=== PATIENT | male | born 1965 | race Caucasian/White ===

== ENCOUNTER 2018-03-08 10:10 | Emergency (ER) | payer MEDICAID, SELFPAY ==
[2018-03-08 10:16] VITALS: BP 138/98; PULSE 99; RESP 16; TEMP 36.7; O2SAT 96
--- NOTE | 2018-03-08 10:21 | ED.GENADUL ---
Disposition Clinical Impression: Constipation Disposition: HOME Condition: Fair Instructions: Constipation (ED) Additional Instructions: Please increase water intake. Please follow-up with primary care next week if symptoms are not improving. Begin with magnesium citrate as prescribed. You may take half the bottle initially, this is unsuccessful augment with the remaining half. If you develop fever/chills, abdominal pain or other new/worsening symptoms please seek care urgently once again. If magnesium citrate is unsuccessful, you may try a glyceryl suppository and continue with the MiraLAX as advised by your primary care Prescriptions: Magnesium Citrate [Citrate Of Magnesia] 300 ml PO ONCE PRN #1 btl PRN Reason: Referrals: Lashonda Silva MD, [place] [Primary Care Provider] - Medical Decision Making - Medical Decision Making Patient presents today with chief complaint of constipation ?5 days. Patient has tried minimal options at home. He was advised by his primary care to try a few days of MiraLAX. Patient did try one dose yesterday. We did discuss that this may take time to resolve. He is not endorsing any abdominal pain. No nausea vomiting. He is passing flatus. Abdominal exam is soft and nontender. No impaction on rectal exam. Rectal exam was nontender for the patient. Heme-negative stool. Patient I discussed various options. He did initially come in hoping for an enema. However, we did discuss the risks associated with enema and advised that he may try some more noninvasive techniques first. Patient prefers to try these techniques at home and when he may use his own restaurant. Patient was advised to try magnesium citrate. We also discussed other [id number] options. We discussed that he may discontinue the MiraLAX the next few days as was advised by his primary care. I also advised his primary had recommended he stay in contact with them if he develops persistent or worsening symptoms. I encouraged hydration. He was given return precautions. All his questions and concerns were addressed and he is in agreement this plan. History of Present Illness - General Chief complaint: Abd Prob Stated complaint: BOWEL PROBLEMS Time Seen by Provider: 03/08/18 10:17 Source: patient, RN notes reviewed Mode of arrival: ambulatory Limitations: no limitations - History of Present Illness Initial comments: Patient is a 52-year-old male presenting with chief complaint constipation. Patient was seen by his primary care yesterday for this. He reported at that point that he had not had a bowel movement in the past 4 days. He was passing flatus. Drink Gatorade and ice tea to help with symptomatic relief. Primary CARE advised trying polyethylene glycol. They advised trying this in the next few days to see if this would improve his symptoms at all. Exam is performed yesterday no acute abnormalities are noted, abdomen was soft and nontender. He reports that he took 1 dose of MiraLAX last night and is concerned he still has not had a bowel movement as of yet. Has not been sitting on the toilet frequently. He denies any pain. Says that he can have bloating. Denies any rectal pain. Does not have any abdominal surgeries. States that he was cold last night but no documented fevers. Denies any chest pain or shortness of breath. - Related Data Aspirin 1 tab PO DAILY tab-cap 10/22/12 Loratadine [Claritin] 1 tab PO DAILY PRN #90 tab-cap 11/11/12 Losartan [Cozaar] 50 mg PO DAILY #90 tab-cap 01/24/18 Polyethylene Glycol 1000 [Polyethylene Glycol] 17 gm PO BID PRN #500 gm 03/07/18 Magnesium Citrate [Citrate Of Magnesia] 300 ml PO ONCE PRN #1 btl 03/08/18 Allergies Allergy/AdvReac Type Severity Reaction Status Date / Time ibuprofen Allergy Unverified 03/08/18 10:22 hydrochlorothiazide AdvReac Mild LEFT SIDED Unverified 03/07/18 08:13 ABDOMINAL PAIN Review of Systems Constitutional: see HPI Respiratory: no symptoms reported Cardiovascular: denies: chest pain, palpitations Gastrointestinal: as per HPI, constipation. denies: abdominal pain, nausea, vomiting, diarrhea Genitourinary: denies: urgency, dysuria, frequency Musculoskeletal: back pain (chronic, reports it is worse on the left when sleeping. None currently) Skin: denies: rash, lesions Neurological: as per HPI. denies: headache (none currently) Past Medical History - Past Medical History Medical history: hyperlipidemia, hypertension Prostate hypertrophy Surgical history: no surgical history General Exam - General Limitations: no limitations General appearance: alert, in no apparent distress - Eye Eye exam: Present: normal apperance - Respiratory Respiratory exam: Present: normal lung sounds bilaterally. Absent: respiratory distress - Cardiovascular Cardiovascular Exam: Present: regular rate, normal rhythm, normal heart sounds - GI/Abdominal GI/Abdominal exam: Present: soft (Obese), normal bowel sounds. Absent: distended, tenderness, guarding, rebound, rigid, organomegaly, hernia - Rectal Rectal exam: Present: normal inspection, normal rectal tone, heme (-) stool, hemorrhoids (Small external hemorrhoid is noted. This is not thrombosed), prostate enlargement (Nontender). Absent: tenderness, prostate tenderness - Extremities Exam Extremities exam: Present: normal inspection - Back Exam Back exam: Present: normal inspection. Absent: CVA tenderness (R), CVA tenderness (L) - Neurological Exam Neurological exam: Present: alert, normal gait - Psychiatric Psychiatric exam: Present: normal affect, normal mood - Skin Skin exam: Present: warm, dry, normal color Course Vital Signs - 24 hr 03/08/18 10:16 Temperature 36.7 C Pulse 99 H Respiratory 16 Rate Blood Pressure 138/98 Pulse Oximetry 96
== END 2018-03-08 11:14 | disposition home or self-care (01) ==
LOC: ER 03-09 10:14
PROVIDERS: Emergency Provider Student in an Organized Health Care Education/Training Program; PCP Family Medicine
DX: K59.09 Other constipation (principal); I10 Essential (primary) hypertension
CPT/HCPCS: 99283

== ENCOUNTER 2019-12-03 02:39 | Outpatient (CLI) | payer MEDICAID, SELFPAY ==
[2019-12-03 10:42] LABS: Abs Immature Grans 0.01 k/cumm (0.0-0.09); Absolute Basophil Count 0.02 k/cumm (0.0-0.2); Absolute Eosinophil Count 0.12 k/cumm (0.0-0.7); Absolute Lymphocyte Count 2.06 k/cumm (1.2-3.4); Absolute Monocyte Count 0.85 k/cumm (0.11-0.7); Absolute Neutrophil Count 4.91 k/cumm (1.2-6.7); Basophils % 0.3; Eosinophils % 1.5; HCT 31.6 % (40.0-50.0); HGB 9.4 g/dL (13.5-17.5); Immature Grans % 0.1 %; Lymphocytes % 25.8; Mean Corp. HGB Concentration 29.7 g/dL (32.0-36.0); Mean Corpuscular Hemoglobin 21.9 pg (27.0-33.0); Mean Corpuscular Volume 73.7 fL (80-95); Mean Platelet Volume 9.8 fL (8.0-11.0); Monocytes % 10.7; Neutrophils % 61.6; Platelet Count 357 x1000/uL (130-400); RBC 4.29 m/cumm (4.50-6.00); RBC Distribution Width 19.3 % (11.8-14.1); White Blood Cell Count 7.97 k/cumm (4.4-10.8)
[2019-12-03 10:48] LABS: Hemoglobin A1C 6.4 % (3.8-5.6)
[2019-12-03 11:02] LABS: Anisocytosis 2+; Diff Comment RBC Morph Reviewed
[2019-12-03 11:03] LABS: Hypochromasia 3+; Microcytosis 3+; Poikilocytes 1+; Polychromasia Present
[2019-12-03 11:16] LABS: Iron 20 ug/dL (65-175); Total Iron Binding Capacity 437 ug/dL (250-450)
[2019-12-03 11:41] LABS: ALT 23 U/L (16-63); AST 20 U/L (15-37); Albumin 3.8 g/dL (3.4-5.0); Alkaline Phosphatase 101 U/L (46-116); Anion Gap 5.7 mmol/L (3-11); BUN 17 mg/dL (7-18); Bilirubin, Total 0.4 mg/dL (0.2-1.0); CO2 29.3 mmol/L (21.0-32.0); CREATININE 1.43 mg/dL (0.70-1.30); Calcium 8.9 mg/dL (8.5-10.1); Calculated LDL 99 mg/dL (<100); Chloride 104 mmol/L (98-107); Cholesterol 153 mg/dL (<200); Estimated GFR 51.73 (mL/min/1.73m2); Ferritin 5 ng/mL (26-388); Folate 17.9 ng/mL (8.6-20.0); Glucose 85 mg/dL (74-106); HDL Cholesterol 38 mg/dL (40-60); Magnesium 2.3 mg/dL (1.8-2.4); Potassium 4.3 mmol/L (3.5-5.1); Sodium 139 mmol/L (136-145); Total Protein 8.2 g/dL (6.4-8.2); Triglyceride 82 mg/dL (<150); Vitamin B12 616 pg/mL (193-986)
[2019-12-03 11:48] LABS: C-Reactive Protein 0.14 mg/dL (0.0-0.3)
[2019-12-04 14:41] LABS: Vitamin D 25 Total 27.7 ng/ml (30-100)
[2019-12-05 09:51] LABS: Homocysteine 12.2 umol/L (5.0-13.9)
[2019-12-05 10:54] LABS: Lipoprotein (a) <6 mg/dL (<=30)
== END 2019-12-03 02:59 ==
PROVIDERS: PCP Family Medicine; Visit Provider Naturopath
DX: R53.83 Other fatigue (principal); I10 Essential (primary) hypertension; Z82.49 Family history of ischemic heart disease and other diseases of the circulatory system
CPT/HCPCS: 36415; 80053; 80061; 82306; 83090; 83695; 82607; 82728; 82746; 83036; 83540; 83550; 83735; 85025; 86140

== ENCOUNTER 2019-12-08 20:34 | Outpatient (REF) | payer MEDICAID, SELFPAY ==
[2019-12-08 20:15] LABS: Abs Immature Grans 0.01 k/cumm (0.0-0.09); Absolute Basophil Count 0.02 k/cumm (0.0-0.2); Absolute Eosinophil Count 0.11 k/cumm (0.0-0.7); Absolute Lymphocyte Count 1.97 k/cumm (1.2-3.4); Absolute Monocyte Count 0.66 k/cumm (0.11-0.7); Absolute Neutrophil Count 3.91 k/cumm (1.2-6.7); Basophils % 0.3; Eosinophils % 1.6; HCT 31.2 % (40.0-50.0); HGB 9.2 g/dL (13.5-17.5); Immature Grans % 0.1 %; Lymphocytes % 29.5; Mean Corp. HGB Concentration 29.5 g/dL (32.0-36.0); Mean Corpuscular Hemoglobin 21.6 pg (27.0-33.0); Mean Corpuscular Volume 73.2 fL (80-95); Monocytes % 9.9; Neutrophils % 58.6; Platelet Count 382 x1000/uL (130-400); RBC 4.26 m/cumm (4.50-6.00); RBC Distribution Width 19.5 % (11.8-14.1); White Blood Cell Count 6.68 k/cumm (4.4-10.8)
[2019-12-08 21:15] LABS: Diff Comment RBC Morph Reviewed
[2019-12-08 21:16] LABS: Anisocytosis 2+; Hypochromasia 2+; Macrocytosis 1+; Microcytosis 2+; Polychromasia Present
[2019-12-08 21:46] LABS: ALT 19 U/L (16-63); AST 25 U/L (15-37); Albumin 3.8 g/dL (3.4-5.0); Alkaline Phosphatase 102 U/L (46-116); Anion Gap 6.7 mmol/L (3-11); BUN 23 mg/dL (7-18); Bilirubin, Total 0.3 mg/dL (0.2-1.0); CO2 27.3 mmol/L (21.0-32.0); CREATININE 1.31 mg/dL (0.70-1.30); Calcium 8.2 mg/dL (8.5-10.1); Chloride 103 mmol/L (98-107); Estimated GFR 57.24 (mL/min/1.73m2); Glucose 94 mg/dL (74-106); Potassium 4.4 mmol/L (3.5-5.1); Sodium 137 mmol/L (136-145); Total Protein 8.1 g/dL (6.4-8.2)
== END 2019-12-08 20:54 ==
LOC: LBN 20:34
PROVIDERS: PCP Family Medicine; Visit Provider Family Medicine
DX: I10 Essential (primary) hypertension (principal); D64.9 Anemia, unspecified; K92.0 Hematemesis
CPT/HCPCS: 80053; 85025

== ENCOUNTER 2020-02-26 00:36 | Outpatient (CLI) | payer MEDICAID, SELFPAY ==
--- NOTE | 2020-02-26 09:23 | DI.US_ITS ---
EXAM: US AAA SCREENING CLINICAL HISTORY: ABD AORTIC BRUIT,R09.89 COMPARISON: No exams were available for comparison FINDINGS: Abdominal Aorta maximal diameter: Proximal: 2.6 cm Iliac's: Right: 1.3 cm Left: 1 cm The doppler velocities are within normal limits. A cyst is noted at the lower pole of the left kidney measuring 6.5 cm in maximal dimension. IMPRESSION: No evidence of abdominal aortic aneurysm. DATA REPOSITORY:
== END 2020-02-26 00:56 ==
PROVIDERS: PCP Family Medicine; Visit Provider Naturopath
DX: R09.89 Other specified symptoms and signs involving the circulatory and respiratory systems (principal)
CPT/HCPCS: 76706

== ENCOUNTER 2021-12-07 19:27 | Outpatient (CLI) | payer MEDICAID, SELFPAY ==
[2021-12-07 12:03] LABS: Abs Immature Grans 0.02 10^3/uL (0.0-0.06); Absolute Basophil Count 0.04 10^3/uL (0.0-0.2); Absolute Eosinophil Count 0.03 10^3/uL (0.0-0.7); Absolute Lymphocyte Count 1.46 10^3/uL (1.2-3.4); Absolute Monocyte Count 0.64 10^3/uL (0.1-0.8); Absolute Neutrophil Count 6.48 10^3/uL (1.2-6.7); Basophils % 0.5; Eosinophils % 0.3; HCT 45.3 % (40.0-50.0); HGB 14.3 g/dL (13.5-17.5); Immature Grans % 0.2; Lymphocytes % 16.8; MCH 29.2 pg (27.0-33.0); MCHC 31.6 % (32.0-36.0); MCV 92 fL (80-95); MPV 9.4 fL (8.0-11.0); Monocytes % 7.4; Neutrophils % 74.8; Platelet Count 205 10^3/uL (130-400); RDW 13.4 % (11.8-14.1); RDW-SD 46.2 fL; WBC 8.67 10^3/uL (4.4-10.8)
[2021-12-07 12:35] LABS: Iron 144 ug/dL (65-175); Total Iron Binding Capacity 367 ug/dL (250-450); Transferrin Sat 39 % (20-55)
[2021-12-07 12:47] LABS: ALT 28 U/L (16-63); AST 29 U/L (15-37); Albumin 4.3 g/dL (3.4-5.0); Alkaline Phosphatase 108 U/L (46-116); Anion Gap 6.8 mmol/L (3-11); BUN 16 mg/dL (7-18); Bilirubin, Total 0.6 mg/dL (0.2-1.0); CO2 28.2 mmol/L (21.0-32.0); CREATININE 1.2 mg/dL (0.70-1.30); Calculated LDL 105 mg/dL (<100); Chloride 105 mmol/L (98-107); Cholesterol 170 mg/dL (<200); Creatine Kinase 286 U/L (39-308); Ferritin 25 ng/mL (26-388); Folate 18.2 ng/mL (8.6-20.0); Glucose 102 mg/dL (74-106); HDL Cholesterol 52 mg/dL (40-60); NT-proBNP 163 pg/mL (<300); Potassium 3.7 mmol/L (3.5-5.1); Sodium 140 mmol/L (136-145); Total Protein 8.9 g/dL (6.4-8.2); Triglyceride 66 mg/dL (<150); Troponin I < 50 ng/L (<or=60); Vitamin B12 473 pg/mL (193-986)
[2021-12-07 17:30] LABS: Hemoglobin A1C 5.8 % (<5.7)
[2021-12-07 21:56] LABS: CRP, High Sensitivity 1.19 mg/L (See Note)
== END 2021-12-07 19:28 | disposition home or self-care (01) ==
PROVIDERS: Visit Provider Naturopath
DX: I10 Essential (primary) hypertension (principal); E11.29 Type 2 diabetes mellitus with other diabetic kidney complication; R53.83 Other fatigue
CPT/HCPCS: 36415; 80053; 80061; 82550; 86141; 82607; 82728; 82746; 83036; 83540; 83550; 83880; 84484; 85025

== ENCOUNTER 2021-12-20 10:14 | Emergency (ER) | payer MEDICAID, SELFPAY ==
[2021-12-20] VITALS (19 sets, daily range): BP systolic 147–182; BP diastolic 97–116; PULSE 65–82; RESP 11–20; TEMP 37; O2SAT 88–99
--- NOTE | 2021-12-20 10:30 | RT.EKG_ITS ---
APPROVED REPORT Exam: Resting ECG Reason for Exam: palpitations Patient Location: E HR:77 bpm ECG Measurements Heart Rate 77 AXIS NM 142 P 21 QRSd 107 QRS -24 QT 401 T 74 QTc 455 Conclusion Sinus rhythm...normal P axis, V-rate 60- 99 Probable LVH with secondary repol abnrm...multiple LVH criteria. Sinus. No STEMI. I have reviewed and interpreted ECG and agree with software generated interpretation.
--- NOTE | 2021-12-20 10:45 | DI.RAD_ITS ---
Exam(s) XR PORTABLE CHEST AP EXAM: XR PORTABLE CHEST AP CLINICAL HISTORY: chest pain. TECHNIQUE: 2D digital imaging was performed. COMPARISON: No exams were available for comparison FINDINGS: Single AP portable view. Heart size is upper normal. The mediastinum is not widened. Lungs are clear. No infiltrates nor obvious pleural effusions. IMPRESSION: No acute pulmonary findings on this single AP portable view of the chest. DATA REPOSITORY: RADIATION DOSE DELIVERED: All CT scans at this facility use at least one of these dose optimization techniques: automated exposure control; mA and/or kV adjustment per patient size (includes targeted e xams where dose is matched to clinical indication); or iterative reconstruction.
[2021-12-20 11:08] LABS: Abs Immature Grans 0.01 10^3/uL (0.0-0.06); Absolute Basophil Count 0.02 10^3/uL (0.0-0.2); Absolute Eosinophil Count 0.04 10^3/uL (0.0-0.7); Absolute Lymphocyte Count 1.36 10^3/uL (1.2-3.4); Absolute Monocyte Count 0.56 10^3/uL (0.1-0.8); Absolute Neutrophil Count 5.86 10^3/uL (1.2-6.7); Basophils % 0.3; Eosinophils % 0.5; HCT 41.2 % (40.0-50.0); HGB 13.1 g/dL (13.5-17.5); Immature Grans % 0.1; Lymphocytes % 17.3; MCH 29.3 pg (27.0-33.0); MCHC 31.8 % (32.0-36.0); MCV 92 fL (80-95); MPV 9.4 fL (8.0-11.0); Monocytes % 7.1; Neutrophils % 74.7; Platelet Count 217 10^3/uL (130-400); RBC 4.47 10^6/uL (4.36-5.78); RDW 13.6 % (11.8-14.1); RDW-SD 46.4 fL; WBC 7.85 10^3/uL (4.4-10.8)
--- NOTE | 2021-12-20 11:22 | W.ED.GENAD ---
Discharge Plan Disposition Patient Disposition: HOME Condition: Stable Discharge Details Clinical Impression: Heart palpitations, Hypertension Primary Care Provider: Dorcas Pierce ED Provider: Regine Schaeffer Home Meds and New Rx's Prescriptions: New losartan 25 mg tablet 25 mg PO DAILY Qty: 14 0RF Continued omeprazole 20 mg capsule,delayed release(DR/EC) 20 mg PO DAILY Qty: 90 4RF cholecalciferol (vitamin D3) [Vitamin D3] 125 mcg (5,000 unit) tablet 125 mcg PO DAILY Qty: 90 4RF loratadine [Claritin] 10 MG tablet 1 tab PO DAILY PRNQty: 90 losartan 50 mg tablet 25 mg PO DAILY Qty: 45 11RF Discharge Instructions Instructions: Heart Palpitations (ED), Hypertension (ED) Additional Instructions: Start taking the losartan again Talk to your doctor about whether or not this herbal remedy is appropriate for you, I did attempt to call her today but she did not respond I am unsure regarding your medication I also set you up for Holter monitor Please return earlier should you have new or worsening complaints Recommend outpatient follow-up with your primary care physician within the next 24 to 48 hours Referrals: Dorcas Pierce [Primary Care Provider] - Discharge Data Discharge Date/Time-TO BE ENTERED AT DEPARTURE: 12/20/21 12:52 Medical Decision Making Patient appears well He is alert and oriented and presents with his sister His exam is benign including troponin, thyroid, and diagnostic blood work He remained hypertensive throughout the day and therefore he was initiated on his losartan which he has been previously prescribed He will keep close track of his blood pressure at home and call his provider to schedule close outpatient reassessment He was also initiated with a Holter monitor I did attempt to call patient's PCP during patient's stay for further information, however no phone call was received for several hours and patient was subsequently discharged home with a Holter monitor in place I am also unsure of what the supplement patient is receiving from his provider is that he was instructed to discontinue this supplement as we are unable to account for adverse effects with a combination of medication and supplementation Medical Records Medical records reviewed: Yes I reviewed the patient's medical records. Lab Data Lab results reviewed: Yes I reviewed the patient's lab results. ECG Data Prior ECG tracings: available for review HPI General Date/Time Provider Initiated Documentation: 12/20/21 10:18. HPI Narrative: This 56-year-old gentleman with history of hypertension presents with report of report of burning sensation to left lower extremity with palpitations/ fluttering last evening while laying down and resting. he reports 10 minutes of symptoms Denies chest pain or shortness of breath. Denies any associated diaphoresis or nausea. Denies known history of early coronary artery disease. Does not smoke, drink, use any additional illicit drugs. Denies prior history of similar symptoms in the past. He did recently start seeing a mathematical technician and states he was started on a new medication. He reports this is a natural remedy, but is unsure of the name. Denies any calf pain or swelling, recent flights, surgeries, long drives. Denies prior history of similar symptoms in the past. States but he saw his PCP and was sent to the emergency department because of his symptoms. Related Data Home Medications Medication Instructions Recorded Confirmed loratadine 10 mg tablet (Claritin) 1 tab PO DAILY PRN #90 tab-caps 11/11/12 12/20/21 cholecalciferol (vitamin D3) 125 125 mcg PO DAILY #90 tabs 12/08/19 12/20/21 mcg (5,000 unit) tablet (Vitamin D3) omeprazole 20 mg capsule,delayed 20 mg PO DAILY #90 caps 12/08/19 12/20/21 release losartan 50 mg tablet 25 mg PO DAILY #45 tab-caps 04/11/20 12/20/21 losartan 25 mg tablet 25 mg PO DAILY #14 tabs 12/20/21 Previous Rx's Medication Instructions Recorded cholecalciferol (vitamin D3) 125 125 mcg PO DAILY #90 tabs 12/08/19 mcg (5,000 unit) tablet (Vitamin D3) omeprazole 20 mg capsule,delayed 20 mg PO DAILY #90 caps 12/08/19 release losartan 50 mg tablet 25 mg PO DAILY #45 tab-caps 04/11/20 losartan 25 mg tablet 25 mg PO DAILY #14 tabs 12/20/21 Allergies Allergy/AdvReac Type Severity Reaction Status Date / Time ibuprofen Allergy Verified 12/20/21 10:25 hydrochlorothiazide AdvReac Mild LEFT SIDED Verified 12/20/21 10:25 ABDOMINAL PAIN General Stated Complaint: GenMedical ADALBERTO: 3 Review of Systems All systems reviewed & are unremarkable except as noted in HPI and below PFSH All Active Problems (Updated 12/20/21 @ 11:50 by BLANCA Lofton) Heart palpitations (Acute) Hypertension (Chronic) Palpitations (Acute) Impacted cerumen of left ear (Acute) Diabetes mellitus (Chronic) Anemia (Chronic) Bloody emesis (Acute) Sinus pain (Acute) BPH w urinary obs/LUTS (Chronic 02/14/10) with urinary retention Essential hypertension (Chronic 05/29/13) Hyperlipidemia (Chronic) Increased body mass index (Chronic) Family History (Updated 04/06/20 @ 08:32 by Maura Hernandez) Mother Diabetes Father Arthritis Sister Migraine Grandfather Myocardial infarction Social History Smoking/Tobacco Use Status: Never Smoking risk assessment performed?: Yes Alcohol Intake: never Substance use type: does not use Do you feel safe at home: Yes Do you feel safe in your relationship?: Yes Exam Const General: cooperative, comfortable and no acute distress HENMT Head: normal to inspection Eyes Pupils: PERRL Chest Chest: normal inspection of the chest Resp Effort & Inspection: normal respiratory effort Auscultation: clear to auscultation bilaterally Cardio Rate: regular rate Rhythm: regular rhythm Heart Sounds: no murmurs GI Inspection: normal to inspection Other: No abdominal bruit or pulsatile mass, nontender abdominal exam Skin General skin exam: no rashes or lesions noted Neuro General: patient alert and patient oriented x3 Extrem General: normal to inspection Other: No peripheral edema Distal pulses intact n/v intact Course Vital Signs Vital signs: Vital Signs Temperature 37.0 C 12/20/21 10:20 Pulse 82 12/20/21 10:20 Respiratory Rate 18 12/20/21 10:20 Blood Pressure 182/116 H 12/20/21 10:20 Pulse Oximetry 99 12/20/21 10:20 Temperature 37.0 C 12/20/21 10:20 Temperature Source Temporal Artery Scan 12/20/21 10:20 Pulse 82 12/20/21 10:20 Respiratory Rate 18 12/20/21 10:20 Respiratory Effort Non-Labored 12/20/21 10:24 Blood Pressure 182/116 H 12/20/21 10:20 Blood Pressure Position Sitting 12/20/21 10:20 Pulse Oximetry 99 12/20/21 10:20 Oxygen Delivery Method Room Air 12/20/21 10:20 Oxygen Flow Rate 0 12/20/21 10:20 Pain Level 0 12/20/21 10:20 Lab/Test Results Lab/Test Results: Laboratory Tests Range/Units 12/20/21 10:57 WBC (4.4-10.8) 10^3/uL 7.85 RBC (4.36-5.78) 10^6/uL 4.47 Hgb (13.5-17.5) g/dL 13.1 L Hct (40.0-50.0) % 41.2 MCV (80-95) fL 92 MCH (27.0-33.0) pg 29.3 MCHC (32.0-36.0) % 31.8 L RDW (11.8-14.1) % 13.6 Plt Count (130-400) 10^3/uL 217 MPV (8.0-11.0) fL 9.4 Immature Gran % 0.1 Neutrophils % 74.7 Lymphocytes % 17.3 Monocytes % 7.1 Eosinophils % 0.5 Basophils % 0.3 Nucleated RBC % (0.0-0.3) % 0.0 Absolute Neutrophils (1.2-6.7) 10^3/uL 5.86 Absolute Lymphocytes (1.2-3.4) 10^3/uL 1.36 Absolute Monocytes (0.1-0.8) 10^3/uL 0.56 Absolute Eosinophils (0.0-0.7) 10^3/uL 0.04 Absolute Basophils (0.0-0.2) 10^3/uL 0.02
[2021-12-20 11:26] LABS: ALT 27 U/L (16-63); AST 30 U/L (15-37); Albumin 3.8 g/dL (3.4-5.0); Alkaline Phosphatase 94 U/L (46-116); BUN 16 mg/dL (7-18); Bilirubin, Total 0.5 mg/dL (0.2-1.0); CREATININE 1.2 mg/dL (0.70-1.30); Calcium 8.5 mg/dL (8.5-10.1); Chloride 105 mmol/L (98-107); Glucose 106 mg/dL (74-106); Magnesium 2.1 mg/dL (1.8-2.4); Sodium 140 mmol/L (136-145); TSH (W/Ref FT4) 2.17 uIU/mL (0.36-3.74); Troponin I < 50 ng/L (<or=60)
--- NOTE | 2021-12-21 08:39 | NUR.NOTE ---
[facility]; the provider note, labs, xray report, EKG. Maura Sneed
== END 2021-12-20 12:52 | disposition home or self-care (01) ==
PROVIDERS: Emergency Provider Physician Assistant; PCP Naturopath
DX: R00.2 Palpitations (principal); I10 Essential (primary) hypertension; R07.9 Chest pain, unspecified
CPT/HCPCS: 80053; 93005; 99284; 71045; 83735; 84443; 84484; 85025; 93010

== ENCOUNTER 2021-12-20 11:59 | Outpatient (RCR) | payer MEDICAID, SELFPAY ==
--- NOTE | 2021-12-20 12:00 | HOLTER_ITS ---
APPROVED REPORT Conclusion This is a 48-hour Holter monitor Predominant rhythm was sinus average heart rate 71. Minimum was 47, maximum 109 There were rare ventricular ectopic beats, no couplets, no ventricular tachycardia There were occasional atrial premature beats There was a brief self-limited atrial run, 5 beats in duration There was no atrial fibrillation, no high-grade AV block, no pauses greater than 3 seconds No patient symptoms were reported
== END 2022-01-05 23:59 | disposition home or self-care (01) ==
LOC: RT 11:59
PROVIDERS: PCP Naturopath; Visit Provider Naturopath
DX: R00.2 Palpitations (principal); I49.1 Atrial premature depolarization
CPT/HCPCS: 93225; 93226

== ENCOUNTER → 2022-01-04 01:05 | Outpatient (CLI) | payer MEDICAID, SELFPAY | PROVIDERS: PCP Naturopath; Visit Provider Naturopath | DX: R01.1 Cardiac murmur, unspecified (principal) | CPT/HCPCS: 93306 ==

== ENCOUNTER 2022-01-04 14:00 | Emergency (ER) | payer MEDICAID, SELFPAY ==
[2022-01-04] VITALS (33 sets, daily range): BP systolic 141–173; BP diastolic 96–110; PULSE 69–101; RESP 12–20; TEMP 36.4; O2SAT 94–97
--- NOTE | 2022-01-04 14:15 | DI.CT_ITS ---
Exam(s) CT THORAX ABD/PEL CTA EXAM: CT THORAX ABD/PEL CTA TECHNIQUE: CT angiography of the chest, abdomen and pelvis was performed with bolus infusion of 100 cc of Omnipaque 350. Axial CT angiography was performed with multi-slice acquisition and multi-planar and/or 3D reconstruc tions. COMPARISON: No exams were available for comparison FINDINGS: The lungs are clear. No pleural effusion. No evidence of pulmonary embolic disease. No thoracic aort ic dissection. The ascending thoracic aorta measures up to about 5.4 cm in diameter. Aortic arch is 3.8 cm in diameter period descending aorta 2.5 cm in diameter period. Major branches of the thoraci c aorta appear normal. No pleural effusion. No mediastinal or hilar adenopathy. Tracheobronchial queenie e appears intact. Liver is unremarkable in appearance. There is a nonobstructing calculus of the left kidney measuring up to about 2 cm in diameter and are left renal cysts, the largest measuring roughly 5 cm in diamete r. Right kidney is unremarkable appearance, no urinary tract obstruction. Unremarkable appearance o f the urinary bladder. Gallbladder and bile ducts are CT normal. Pancreas is unremarkable. Spleen is unremarkable. No abdominal aortic aneurysm or dissection. Major branches of the abdominal aorta appear normal. No a bdominal or pelvic adenopathy. Normal appendix. No significant abdominal wall hernia. No focal bowel pathology. IMPRESSION: No evidence of thoracic aortic dissection. There is an ascending thoracic aortic aneurysm measuring up to about 5.4 cm in diameter. RADIATION DOSE DELIVERED: 1,318.63mGy.cm Total DLP 1,318.63mGy.cm Total DLP !Error CTDIvol DATA REPOSITORY: All CT scans at this facility are submitted to the National Radiology Data Registry (NRDR) Dose Index Registry (DIR) with the [employer] (A[employer]). RADIATION OPTIMIZATION: All CT scans at this facility use at least one of these dose optimization te chniques: automated exposure control; mA and/or kV adjustment per patient size (includes targeted exa ms where dose is matched to clinical indication); or iterative reconstruction.
[2022-01-04] MEDS: Metoprolol 5 MG/5 ML VIAL 2.5 MG IVP ×2 (14:42→15:24)
[2022-01-04 14:48] LABS: Abs Immature Grans 0.02 10^3/uL (0.0-0.06); Absolute Basophil Count 0.03 10^3/uL (0.0-0.2); Absolute Eosinophil Count 0.02 10^3/uL (0.0-0.7); Absolute Lymphocyte Count 1.45 10^3/uL (1.2-3.4); Absolute Neutrophil Count 5.46 10^3/uL (1.2-6.7); Basophils % 0.4; Eosinophils % 0.3; HCT 42.7 % (40.0-50.0); HGB 13.9 g/dL (13.5-17.5); Immature Grans % 0.3; Lymphocytes % 19.6; MCH 29.6 pg (27.0-33.0); MCHC 32.6 % (32.0-36.0); MCV 91 fL (80-95); Monocytes % 5.4; Platelet Count 232 10^3/uL (130-400); RBC 4.69 10^6/uL (4.36-5.78); RDW 13.5 % (11.8-14.1); RDW-SD 45.5 fL; WBC 7.38 10^3/uL (4.4-10.8)
[2022-01-04] MEDS: Omnipaque 350 MG/ML 100 ML BTL IJ (14:49)
[2022-01-04] MEDS: Normal Saline Flush 10 ML SYR IVP (14:51)
[2022-01-04 15:07] LABS: ALT 29 U/L (16-63); AST 28 U/L (15-37); Albumin 3.8 g/dL (3.4-5.0); Alkaline Phosphatase 101 U/L (46-116); Anion Gap 7.9 mmol/L (3-11); BUN 14 mg/dL (7-18); Bilirubin, Total 0.5 mg/dL (0.2-1.0); CO2 28.1 mmol/L (21.0-32.0); CREATININE 1.4 mg/dL (0.70-1.30); Calcium 8.5 mg/dL (8.5-10.1); Chloride 103 mmol/L (98-107); Estimated GFR 52.62 (mL/min/1.73m2); Glucose 159 mg/dL (74-106); Potassium 3.6 mmol/L (3.5-5.1); Sodium 139 mmol/L (136-145); Total Protein 8.2 g/dL (6.4-8.2); Troponin I < 50 ng/L (<or=60)
--- NOTE | 2022-01-04 15:09 | W.ED.GENAD ---
Discharge Plan Disposition Patient Disposition: HOME Condition: Improving Discharge Details Clinical Impression: Aneurysm of ascending aorta, Hypertension Primary Care Provider: Dorcas Pierce ED Provider: Dangelo Parsons Home Meds and New Rx's Prescriptions: New metoprolol succinate 25 mg tablet extended release 24 hr 25 mg PO DAILY Qty: 30 1RF No Action loratadine [Claritin] 10 MG tablet 1 tab PO DAILY PRNQty: 90 losartan 25 mg tablet 25 mg PO DAILY Qty: 14 0RF Discharge Instructions Instructions: Thoracic Aortic Aneurysm (ED) Additional Instructions: Please follow-up with cardiothoracic surgical team at [facility] in the coming weeks, also follow-up with cardiology. Please take medications as prescribed. Please return the emergency department he develop any worsening symptoms such as chest pain trouble breathing lightheadedness nausea vomiting or other abnormal symptoms. Discharge Data Discharge Date/Time-TO BE ENTERED AT DEPARTURE: 01/04/22 17:04 Medical Decision Making <Torey Cunningham NP - Last Filed: 01/06/22 11:47> All patient presenting to the emergency department for chief complaint of abnormal echo. Lube Man spoke with skate boarder and referred patient to the emergency department for concern of aortic aneurysm versus dissection. Patient states he is asymptomatic at this time. Patient does report that on December 19 he had an episode where it felt like the blood was flowing abnormal through his valves which lasted 10 to 15 minutes and resolved. The next day he presented to the emergency department and had a unremarkable work-up and was pain-free at that point but continued outpatient work-up with echo today that was abnormal. Physical exam shows a possible grade 1 systolic murmur at the right sternal border, this is very subtle and was only appreciated with a amplified stethoscope. Exam is otherwise unremarkable, radial pulses equal bilateral, no lower extremity edema, patient overall well in appearance. Given concerning findings will perform CTA imaging on a emergent basis and check labs. Review of vital signs show hypertension otherwise stable vital signs. Will give patient Lopressor pressure of 2.5 and continue to monitor. Review of labs show a negative troponin, CBC that is unremarkable, slightly increased creatinine of 1.4 with a GFR 52, glucose 159. All of the labs are within normal range. Review of CT imaging and speaking with radiologist shows a 5.4 ascending aortic aneurysm with radiologist stating no signs of dissection at this time. Patient reassessed and remains pain-free. Patient does still remain hypertensive so we will give additional 2.5 dose of Lopressor and contact cardiothoracic surgery at [facility] This documentation was generated using [employer] dictation system, please disregard any oddities of phrase or misspellings. 16: [address] Jeong of cardiothoracic surgery at [facility] who was able to review echo and CTA imaging, endorses that this is likely chronic in nature without evidence of acute dissection or rupture. Encouraged close follow-up with [facility] cardiothoracic surgery team in the coming weeks as well as cardiology also recommending to start patient on a beta-elliot and AMANDA inhibitor for blood pressure control. Patient is already on an ARB will initiate metoprolol therapy. Counseled patient family extensively regarding diagnosis and need for follow-up and gave strict return precautions. Imaging Data Radiologic Study: Imaging: CT Scan Radiologist's impression: FINDINGS: The lungs are clear. No pleural effusion. No evidence of pulmonary embolic disease. No thoracic aortic dissection. The ascending thoracic aorta measures up to about 5.4 cm in diameter. Aortic arch is 3.8 cm in diameter period descending aorta 2.5 cm in diameter period. Major branches of the thoracic aorta appear normal. No pleural effusion. No mediastinal or hilar adenopathy. Tracheobronchial tree appears intact. Liver is unremarkable in appearance. There is a nonobstructing calculus of the left kidney measuring up to about 2 cm in diameter and are left renal cysts, the largest measuring roughly 5 cm in diameter. Right kidney is unremarkable appearance, no urinary tract obstruction. Unremarkable appearance of the urinary bladder. Gallbladder and bile ducts are CT normal. Pancreas is unremarkable. Spleen is unremarkable. No abdominal aortic aneurysm or dissection. Major branches of the abdominal aorta appear normal. No abdominal or pelvic adenopathy. Normal appendix. No significant abdominal wall hernia. No focal bowel pathology. IMPRESSION: No evidence of thoracic aortic dissection. There is an ascending thoracic aortic aneurysm measuring up to about 5.4 cm in diameter. <Dangelo Parsons MD - Last Filed: 01/04/22 16:29> All patient presenting to the emergency department for chief complaint of abnormal echo. Tach spoke with skate boarder and referred patient to the emergency department for concern of aortic aneurysm versus dissection. Patient states he is asymptomatic at this time. Patient does report that on December 19 he had an episode where it felt like the blood was flowing abnormal through his valves which lasted 10 to 15 minutes and resolved. The next day he presented to the emergency department and had a unremarkable work-up and was pain-free at that point but continued outpatient work-up with echo today that was abnormal. Physical exam shows a possible grade 1 systolic murmur at the right sternal border, this is very subtle and was only appreciated with a amplified stethoscope. Exam is otherwise unremarkable, radial pulses equal bilateral, no lower extremity edema, patient overall well in appearance. Given concerning findings will perform CTA imaging on a emergent basis and check labs. Review of vital signs show hypertension otherwise stable vital signs. Will give patient Lopressor pressure of 2.5 and continue to monitor. Review of labs show a negative troponin, CBC that is unremarkable, slightly increased creatinine of 1.4 with a GFR 52, glucose 159. All of the labs are within normal range. Review of CT imaging and speaking with radiologist shows a 5.4 ascending aortic aneurysm with radiologist stating no signs of dissection at this time. Patient reassessed and remains pain-free. Patient does still remain hypertensive so we will give additional 2.5 dose of Lopressor and contact cardiothoracic surgery at [facility] 16: [address] Jeong of cardiothoracic surgery at [facility] who was able to review echo and CTA imaging, endorses that this is likely chronic in nature without evidence of acute dissection or rupture. Encouraged close follow-up with [facility] cardiothoracic surgery team in the coming weeks as well as cardiology also recommending to start patient on a beta-elliot and AMANDA inhibitor for blood pressure control. Patient is already on an ARB will initiate metoprolol therapy. Counseled patient family extensively regarding diagnosis and need for follow-up and gave strict return precautions. HPI <Torey Cunningham NP - Last Filed: 01/06/22 11:47> General Mode of arrival: ambulatory. Date/Time Provider Initiated Documentation: 01/04/22 14:01. Limitations to Documentation: no limitations. Information obtained by: patient, RN notes reviewed and old records reviewed. History of Present Illness 56 year old M presents to the emergency department with the chief complaint of Abnormal echo, Quality is described as other (Denies chest pain or discomfort), Patient started experiencing this day(s) (15) and it has been now resolved. No relieving factors improve symptom(s), No exacerbating factors reported . Patient notes no other symptoms.. Patient did receive the following treatments prior to arrival, none Related Data Home Medications Medication Instructions Recorded Confirmed loratadine 10 mg tablet (Claritin) 1 tab PO DAILY PRN #90 tab-caps 11/11/12 01/04/22 losartan 25 mg tablet 25 mg PO DAILY #14 tabs 12/20/21 01/04/22 metoprolol succinate 25 mg 25 mg PO DAILY #30 tabs 01/04/22 tablet,extended release 24 hr Previous Rx's Medication Instructions Recorded losartan 25 mg tablet 25 mg PO DAILY #14 tabs 12/20/21 metoprolol succinate 25 mg 25 mg PO DAILY #30 tabs 01/04/22 tablet,extended release 24 hr Allergies Allergy/AdvReac Type Severity Reaction Status Date / Time ibuprofen Allergy Verified 01/04/22 14:08 hydrochlorothiazide AdvReac Mild LEFT SIDED Verified 01/04/22 14:08 ABDOMINAL PAIN General Stated Complaint: GenMedical ADALBERTO: 3 Review of Systems <Torey Cunningham NP - Last Filed: 01/06/22 11:47> Constitutional Constitutional: Denies fever(s) and Denies malaise ENT Ears, Nose, Mouth, and Throat: Denies neck pain Cardiovascular Cardiovascular: Reports as per HPI, Denies chest pain, Denies chest pain with activity, Denies syncope, Denies pedal edema, Denies edema, Denies irregular heart rhythm, Denies palpitations and Denies dyspnea Respiratory Respiratory: Denies cough, Denies hemoptysis and Denies dyspnea Gastrointestinal Gastrointestinal: Denies abdominal pain, Denies nausea and Denies vomiting Musculoskeletal Musculoskeletal: Denies back pain and Denies neck pain Neurologic Neurologic: Denies syncope Psychiatric Psychiatric: Denies anxiety Endocrine Endocrine: Denies palpitations PFS <Torey Cunningham NP - Last Filed: 01/06/22 11:47> All Active Problems (Updated 01/04/22 @ 16:28 by Dangelo Parsons MD) Heart palpitations (Acute) Hypertension (Chronic) Aneurysm of ascending aorta (Acute) Palpitations (Acute) Impacted cerumen of left ear (Acute) Diabetes mellitus (Chronic) Anemia (Chronic) Bloody emesis (Acute) Sinus pain (Acute) BPH w urinary obs/LUTS (Chronic 02/14/10) with urinary retention Essential hypertension (Chronic 05/29/13) Hyperlipidemia (Chronic) Increased body mass index (Chronic) Family History Mother Diabetes Father Arthritis Sister Migraine Grandfather Myocardial infarction Social History Smoking/Tobacco Use Status: Never Smoking risk assessment performed?: Yes Alcohol Intake: never Substance use type: does not use Do you feel safe at home: Yes Do you feel safe in your relationship?: Yes Exam <Torey Cunningham NP - Last Filed: 01/06/22 11:47> Const General: cooperative, healthy appearing, comfortable, no acute distress, not diaphoretic and not ill appearing Nutritional Appearance: average body habitus Orientation: alert, awake and oriented x3 Limitations: mental status not altered Neck Neck: normal visual inspection, full ROM, trachea midline, supple and no anterior neck swelling Carotids: normal carotid upstroke and no bruits Chest Chest: normal inspection of the chest Resp Effort & Inspection: normal respiratory effort and able to speak in complete sentences Auscultation: clear to auscultation bilaterally Cardio Jugular venous pressure: no JVD Palpation: normal PMI Rate: regular rate Rhythm: regular rhythm Heart Sounds: S1 normal, S2 normal, no click, no gallops, murmur systolic I/ and at the right sternal border and no rubs Bruits: no abdominal aortic bruits and no carotid bruits Pulses: radial pulses present bilaterally 2+ GI Inspection: obesity Palpation: soft, no aortic enlargement, no pulsatile masses and nontender Auscultation: normal bowel sounds Skin General skin exam: no rashes or lesions noted Neuro General: patient alert, patient awake, patient oriented x3, tone normal and moves all extremities Extrem General: normal to inspection, full ROM and capillary refill normal Course <Torey Cunningham NP - Last Filed: 01/06/22 11:47> Vital Signs Vital signs: Vital Signs Temperature 36.4 C L 01/04/22 14:02 Pulse 101 H 01/04/22 14:02 Respiratory Rate 20 01/04/22 14:02 Blood Pressure 173/110 H 01/04/22 14:02 Pulse Oximetry 96 01/04/22 14:02 Temperature 36.4 C L 01/04/22 14:02 Temperature Source Skin 01/04/22 14:02 Pulse 87 01/04/22 14:31 Pulse 85 01/04/22 14:40 Respiratory Rate 14 01/04/22 14:40 Respiratory Effort 01/04/22 14:27 Respiratory Depth Normal 01/04/22 14:27 Respiratory Pattern Normal 01/04/22 14:27 Blood Pressure 167/104 H 01/04/22 14:31 Blood Pressure Mean 119 01/04/22 14:31 Blood Pressure Position Sitting 01/04/22 14:02 Pulse Oximetry 96 01/04/22 14:40 Oxygen Delivery Method Room Air 01/04/22 14:02 Oxygen Flow Rate 0 01/04/22 14:02 Pain Level 0 01/04/22 14:02 Lab/Test Results Lab/Test Results: Laboratory Tests Range/Units 01/04/22 14:15 WBC (4.4-10.8) 10^3/uL 7.38 RBC (4.36-5.78) 10^6/uL 4.69 Hgb (13.5-17.5) g/dL 13.9 Hct (40.0-50.0) % 42.7 MCV (80-95) fL 91 MCH (27.0-33.0) pg 29.6 MCHC (32.0-36.0) % 32.6 RDW (11.8-14.1) % 13.5 Plt Count (130-400) 10^3/uL 232 MPV (8.0-11.0) fL 10.0 Immature Gran % 0.3 Neutrophils % 74.0 Lymphocytes % 19.6 Monocytes % 5.4 Eosinophils % 0.3 Basophils % 0.4 Nucleated RBC % (0.0-0.3) % 0.0 Absolute Neutrophils (1.2-6.7) 10^3/uL 5.46 Absolute Lymphocytes (1.2-3.4) 10^3/uL 1.45 Absolute Monocytes (0.1-0.8) 10^3/uL 0.40 Absolute Eosinophils (0.0-0.7) 10^3/uL 0.02 Absolute Basophils (0.0-0.2) 10^3/uL 0.03
--- NOTE | 2022-01-04 16:47 | NUR.NOTE ---
Per Dr. Fuentse, referral made for aneurysm for 1week with [facility] Cardiology, faxed referral. Referral also made to [facility] Cardiothoracic surgery in 1-2 weeks. Put [facility] referrals in the care manger's box for assistance with the appointments.Nursing Note:
--- NOTE | 2022-01-05 09:37 | CMACTNOTE_ITS ---
- If Service Date Differs Date of service: 01/05/22 Time of Service: 09:37 Care Management Activity Note Ryan presents in the ED for an abnormal echo. At the request of ED provider, CM coordinates a referral to [facility] [place] for further evaluation and treatment. A referral is also faxed to [facility] Cardiology by ED staff. Ryan has Medicaid for insurance.
== END 2022-01-04 17:04 | disposition home or self-care (01) ==
PROVIDERS: Nurse Practitioner Family; Emergency Provider Emergency Medicine; PCP Naturopath
DX: I71.2 Thoracic aortic aneurysm, without rupture (principal); I10 Essential (primary) hypertension
CPT/HCPCS: 36415; 71275; 80053; 96374; 96376; 99285; 74174; 83735; 84484; 85025; 99284; J3490

== ENCOUNTER 2022-05-18 15:23 | Outpatient (REF) | payer MEDICAID, SELFPAY ==
[2022-05-18 19:05] LABS: Microalb ug/mg Crea 7.3 ug/mg Cr
[2022-05-18 19:09] LABS: ALT 19 U/L (16-63); AST 24 U/L (15-37); Albumin 3.9 g/dL (3.4-5.0); Alkaline Phosphatase 90 U/L (46-116); Anion Gap 6.5 mmol/L (3-11); BUN 22 mg/dL (7-18); Bilirubin, Total 0.5 mg/dL (0.2-1.0); CO2 28.5 mmol/L (21.0-32.0); CREATININE 1.3 mg/dL (0.70-1.30); Calcium 8.9 mg/dL (8.5-10.1); Calculated LDL 116 mg/dL (<100); Chloride 105 mmol/L (98-107); Cholesterol 176 mg/dL (<200); Estimated GFR 64.88 (mL/min/1.73m2); Glucose 97 mg/dL (74-106); HDL Cholesterol 46 mg/dL (40-60); Sodium 140 mmol/L (136-145); Total Protein 8.5 g/dL (6.4-8.2); Triglyceride 70 mg/dL (<150)
== END 2022-05-18 15:24 | disposition home or self-care (01) ==
LOC: NCHCN 15:23
PROVIDERS: PCP Naturopath; Visit Provider Nurse Practitioner Family
DX: I10 Essential (primary) hypertension (principal); R73.9 Hyperglycemia, unspecified
CPT/HCPCS: 80053; 80061; 82043; 82570

== ENCOUNTER 2022-10-25 11:06 | Outpatient (RCR) | payer MEDICAID, SELFPAY | END 2022-11-05 23:59 | disposition home or self-care (01) | LOC: CR 11:06 | PROVIDERS: PCP Naturopath; Visit Provider Internal Medicine Cardiovascular Disease | DX: R69 Illness, unspecified (principal) ==

== ENCOUNTER 2022-11-15 13:01 | Outpatient (RCR) | payer MEDICAID, SELFPAY | END 2022-12-06 23:59 | disposition home or self-care (01) | LOC: CR 13:01 | PROVIDERS: PCP Naturopath; Visit Provider Internal Medicine Cardiovascular Disease | DX: Z95.2 Presence of prosthetic heart valve (principal); I35.2 Nonrheumatic aortic (valve) stenosis with insufficiency; Z95.828 Presence of other vascular implants and grafts; Z51.89 Encounter for other specified aftercare | CPT/HCPCS: S9472 ==

== ENCOUNTER 2023-09-05 19:55 | Outpatient (REF) | payer MEDICAID, SELFPAY ==
[2023-09-05 20:21] LABS: Hemoglobin A1C 6.1 % (<5.7)
[2023-09-05 20:25] LABS: ALT 17 U/L (16-63); AST 25 U/L (15-37); Albumin 3.9 g/dL (3.4-5.0); Alkaline Phosphatase 108 U/L (46-116); Anion Gap 9.1 mmol/L (3-11); BUN 22 mg/dL (7-18); Bilirubin, Total 0.3 mg/dL (0.2-1.0); CO2 25.9 mmol/L (21.0-32.0); CREATININE 1.3 mg/dL (0.70-1.30); Calcium 9.1 mg/dL (8.5-10.1); Calculated LDL 103 mg/dL (<100); Chloride 104 mmol/L (98-107); Cholesterol 153 mg/dL (<200); Estimated GFR 64.47 (mL/min/1.73m2); Glucose 96 mg/dL (74-106); HDL Cholesterol 38 mg/dL (40-60); Potassium 4.5 mmol/L (3.5-5.1); Sodium 139 mmol/L (136-145); Total Protein 8.7 g/dL (6.4-8.2); Triglyceride 61 mg/dL (<150)
== END 2023-09-05 19:56 | disposition home or self-care (01) ==
LOC: NCHCN 19:55
PROVIDERS: PCP Naturopath; Visit Provider Nurse Practitioner Family
DX: I10 Essential (primary) hypertension (principal); R73.03 Prediabetes
CPT/HCPCS: 80053; 80061; 83036

== ENCOUNTER → 2023-09-27 03:09 | Outpatient (CLI) | payer MEDICAID, SELFPAY ==
--- NOTE | 2023-09-27 | DI.CT_ITS ---
Exam(s) CT THORAX ABD/PEL CTA EXAM: CT THORAX ABD/PEL CTA CLINICAL HISTORY: S/P AAA REPAIR/AVR, AORTIC ANEURYSM W/O RUPTURE, I71.9. TECHNIQUE: Imaging Protocol: Axial CT angiography was performed with multi-slice acquisition and mu lti-planar and/or 3D reconstructions. CONTRAST MATERIAL: Intravenous: Omnipaque 350 Contrast volume:100 ml COMPARISON: CT CT THORAX ABD/PEL CTA from 01/04/2022 FINDINGS: CHEST: Pulmonary Arteries: No evidence of filling defects to suggest pulmonary emboli. Tracheobronchial tree: No bronchiectasis or mucus plugging. Mediastinum and Denise: Small hiatal hernia. No dominant adenopathy or fluid collection. Pulmonary parenchyma: No consolidation or dominant measurable mass. Pleura: No effusion. No pneumothorax. Heart: The heart is mildlydilated. Mild coronary artery calcifications are seen. Aortic valve replac ement. Aorta: Status post repair of proximal ascending aortic aneurysm, now measuring 3 cm in diameter. Bey ond the level of repair the aorta measures up to 4.2 cm. Bones: Sternal wires. Degenerative changes in the thoracic spine. Tubes, Catheters, and Lines: None. Soft tissues: Unremarkable. ABDOMEN and PELVIS: Liver: Normal size. Normal density. No suspicious measurable mass. Portal, Superior Mesenteric, and Splenic Veins: Unremarkable. Gallbladder and Biliary Tract: No radiodense calculus. No biliary dilatation. Pancreas: Normal density, no abnormal calcifications or inflammatory process. Spleen: Normal. Adrenals: No masses seen. Kidneys: Normal size, contour and axis. No radiodense stones. No obstructive uropathy. Two cyst agai n noted on the left kidney. Calcifications mid left kidney, nonobstructing. No suspicious masses se en. Vasculature: Abdominal aorta non-dilated. No significant atherosclerotic changes. Branch vessels ap pear patent. Bowel: No obstruction or bowel wall thickening. Appendix is unremarkable. Peritoneal Cavity: No ascites, collection or mesenteric inflammatory response. Lymph Nodes: Within normal limits. Soft Tissues: Small fatty containing umbilical hernia. Bladder: Symmetric distention, no gross wall thickening. Reproductive Organs: Unremarkable as visualized. Bones: Degenerative changes in the lumbar spine. IMPRESSION: 1. Status post aortic valve replacement. Status post ascending aortic aneurysm repair. No evidence of dissection. No evidence of pulmonary embolism. 2. No acute abdominal or pelvic process. RADIATION DOSE DELIVERED: Total DLP DATA REPOSITORY: All CT scans at this facility are submitted to the National Radiology Data Registry (NRDR) Dose Index Registry (DIR) with the [employer] (ACR). RADIATION OPTIMIZATION: All CT scans at this facility use at least one of these dose optimization te chniques: automated exposure control; mA and/or kV adjustment per patient size (includes targeted exa ms where dose is matched to clinical indication); or iterative reconstruction.
[2023-09-27] MEDS: Omnipaque 350 MG/ML 100 ML BTL IJ (14:13)
[2023-09-27] MEDS: Normal Saline - Diluent 50 ML VIAL IJ (14:14)
== END ==
PROVIDERS: PCP Naturopath; Visit Provider Nurse Practitioner Family
DX: I71.21 Aneurysm of the ascending aorta, without rupture (principal)
CPT/HCPCS: 71275; 74174; J3490

== ENCOUNTER 2023-09-27 05:45 | Outpatient (CLI) | payer MEDICAID, SELFPAY ==
[2023-09-27 13:17] LABS: CREATININE 1.4 mg/dL (0.70-1.30); Estimated GFR 58.99 (mL/min/1.73m2)
== END 2023-09-27 05:46 | disposition home or self-care (01) ==
PROVIDERS: PCP Naturopath; Visit Provider Nurse Practitioner Family
DX: I71.21 Aneurysm of the ascending aorta, without rupture (principal)
CPT/HCPCS: 36415; 82565

== ENCOUNTER 2023-11-12 08:10 | Outpatient (RCR) | payer MEDICAID, SELFPAY | END 2023-12-07 23:59 | disposition home or self-care (01) | LOC: CR 08:10 | PROVIDERS: PCP Nurse Practitioner Family; Visit Provider Internal Medicine Cardiovascular Disease | DX: I71.21 Aneurysm of the ascending aorta, without rupture (principal); Z51.89 Encounter for other specified aftercare | CPT/HCPCS: S9472 ==

== ENCOUNTER 2024-01-04 09:00 | Outpatient (RCR) | payer MEDICAID, SELFPAY | END 2024-01-06 23:59 | disposition home or self-care (01) | LOC: CR 09:00 | PROVIDERS: PCP Nurse Practitioner Family; Visit Provider Internal Medicine Cardiovascular Disease | DX: Z95.2 Presence of prosthetic heart valve (principal) | CPT/HCPCS: S9472 ==

== ENCOUNTER 2024-02-06 10:04 | Outpatient (RCR) | payer MEDICAID, SELFPAY | END 2024-02-06 23:59 | disposition home or self-care (01) | LOC: CR 10:04 | PROVIDERS: PCP Nurse Practitioner Family; Visit Provider Internal Medicine Cardiovascular Disease | DX: Z95.5 Presence of coronary angioplasty implant and graft (principal) | CPT/HCPCS: S9472 ==

== ENCOUNTER 2024-03-07 08:51 | Outpatient (RCR) | payer MEDICAID, SELFPAY | END 2024-03-08 23:59 | disposition home or self-care (01) | LOC: CR 08:51 | PROVIDERS: PCP Nurse Practitioner Family; Visit Provider Internal Medicine Cardiovascular Disease | DX: Z95.2 Presence of prosthetic heart valve (principal); Z51.89 Encounter for other specified aftercare | CPT/HCPCS: S9472 ==

== ENCOUNTER 2024-03-26 09:02 | Outpatient (RCR) | payer MEDICAID, SELFPAY | END 2024-04-07 23:59 | disposition home or self-care (01) | LOC: CR 09:02 | PROVIDERS: PCP Nurse Practitioner Family; Visit Provider Internal Medicine Cardiovascular Disease | DX: Z95.4 Presence of other heart-valve replacement (principal); Z51.89 Encounter for other specified aftercare | CPT/HCPCS: S9472 ==

== ENCOUNTER 2024-07-21 12:28 | Outpatient (REF) | payer MEDICAID, SELFPAY ==
[2024-07-21 19:32] LABS: ALT 27 U/L (16-63); AST 30 U/L (15-37); Albumin 3.8 g/dL (3.4-5.0); Alkaline Phosphatase 111 U/L (46-116); Anion Gap 7.1 mmol/L (3-11); BUN 20 mg/dL (7-18); Bilirubin, Total 0.27 mg/dL (0.2-1.0); CO2 28.9 mmol/L (21.0-32.0); CREATININE 1.3 mg/dL (0.70-1.30); Chloride 106 mmol/L (98-107); Estimated GFR 64.07 (mL/min/1.73m2); Glucose 98 mg/dL (74-106); Potassium 4.7 mmol/L (3.5-5.1); Sodium 142 mmol/L (136-145); Total Protein 8.5 g/dL (6.4-8.2)
== END 2024-07-21 12:29 | disposition home or self-care (01) ==
LOC: NCHCN 12:28
PROVIDERS: PCP Nurse Practitioner Family; Visit Provider Nurse Practitioner Family
DX: I10 Essential (primary) hypertension (principal)
CPT/HCPCS: 80053